=== PATIENT | male | born 1950 | race Caucasian/White ===

== ENCOUNTER → 2016-11-16 | Outpatient (CLI) | payer OTHER ==
[~2016-11-16] MED LIST: DEPO METHYLPREDNISOLONE 80 MG/ML SDV ONE; IOPAMIDOL (ISOVUE 370) 100 ML BTL IV ONE; LIDOCAINE 1% 30 ML SDV ONE; NA BICARBONATE 50 MEQ/50 ML VIAL ONE; ROPIVACAINE HCL 150 MG/30 ML INJ ONE
== END ==
LOC: FIMAGING 13:04
PROVIDERS: ATTEND Orthopaedic Surgery
PROC: 3E0U33Z Introduction of Anti-inflammatory into Joints, Percutaneous Approach (ICD-10-PCS; principal; 2016-11-16)
PROC: 3E0U3BZ Introduction of Anesthetic Agent into Joints, Percutaneous Approach (ICD-10-PCS; principal; 2016-11-16)
DX: M16.11 Unilateral primary osteoarthritis, right hip (principal)
CPT/HCPCS: J1040; J2795; Q9967

== ENCOUNTER 2017-01-18 05:51 | Inpatient (IN) | payer OTHER ==
--- NOTE | 2016-12-24 15:21 | GHP ---
[f rep st] PREOP HISTORY AND PHYSICAL DATE OF ADMISSION: 01/18/2017 He will be an a.m. admission for surgery on January 18, 2017. PROBLEM: Right hip arthritis. HISTORY OF PRESENT ILLNESS: The patient is a 66-year-old man admitted for a right total hip arthrop lasty. He has had progressive pain in the right hip over the last couple of years. It is limiting his activities. He is having daily pain and some night pain. He has also noticed that the hip is s tiff and tight. PAST MEDICAL HISTORY: He has a right total knee arthroplasty which was performed in [facility] 14 years ago. He also has known degenerative arthritis in his left knee. He has had a previou s left knee ACL reconstruction. He has been evaluated for abnormal cardiac rhythm. He has been evaluated by his knot cutter and adams s been cleared for surgery. No history of DVT, hepatitis, or sleep apnea. He has never had a previ ous MRSA staph infection. CURRENT MEDICATIONS: None. DRUG ALLERGIES: Questionable allergy to penicillin as a young adult. Metal allergies: None. Late x allergy: None. SOCIAL HISTORY: The patient does not smoke cigarettes. Occasionally drinks alcohol. 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 He is . FAMILY HISTORY: Positive for arthritis, high blood pressure, heart disease and diabetes. PHYSICAL EXAMINATION: Height 5 feet 11 inches. Weight 180 pounds. BMI 27.8. EYES: Conjunctivae and sclerae are clear. Pupils are round and reactive. MOUTH: Good oral hygiene. No loose teeth. CHEST: Clear. HEART: Regular rhythm. No murmurs. EXTREMITIES: Pertinent findings limited to h is right hip. He has full hip extension and about 105 degrees of flexion. External rotation 20 deg bimal. Internal rotation 10 degrees. Abduction 20 degrees. IMAGING: Films on July 30, 2016, show advanced degenerative arthritis of the right hip. He has cartilage space narrowing and osteophyte formation. His leg lengths are equal. IMPRESSION ON ADMISSION: 1. Right hip advanced degenerative arthritis. 2. Status post right total knee arthroplasty 14 years ago. 3. Left knee moderate degenerative arthritis. PLAN: He will undergo a right total hip arthroplasty. The surgery has been described to him, inclu ding the risks, complications, expectations, and recovery time. I have specifically discussed with him the risk of dislocation, leg length inequality, infection, and sciatic nerve injury. He likes t o mountain climb, rock climb and kayak. All his questions have been answered, and he consents to maddy faulkner. /[id number]/MODL
[2017-01-18] MEDS ORDERED: ceFAZolin 1 GM/5 ML SYR ONE (06:35)
[2017-01-18] MEDS ORDERED: LIDOCAINE 1% 2 ML INJ ONE (06:49)
--- NOTE | 2017-01-18 06:50 | PDANEPAE ---
ANE History of Present Illness right hip replacement ANE Past Medical History - Cardiovascular History Hx Hypertension: No Hx Arrhythmias: No Hx Chest Pain: No Hx Coronary Artery / Peripheral Vascular Disease: No Hx CHF / Valvular Disease: No Hx Palpitations: No - Pulmonary History Hx COPD: No Hx Asthma/Reactive Airway Disease: No Hx Recent Upper Respiratory Infection: No Hx Oxygen in Use at Home: No Hx Sleep Apnea: No Sleep Apnea Screening Result - Last Documented: Negative - Neurologic History Hx Cerebrovascular Accident: No Hx Seizures: No Hx Dementia: No - Endocrine History Hx Diabetes: No - Renal History Hx Renal Disorders: No - Liver History Hx Hepatic Disorders: No - Neurological & Psychiatric Hx Hx Neurological and Psychiatric Disorders: No - Cancer History Hx Cancer: No - Congenital Disorder History Hx Congenital Disorders: No - Chronic Pain History Chronic Pain: Yes (RIGHT HIP AND LEFT KNEE) - Surgical History Prior Surgeries: LEFT FOOT RECONSTRUCTION. RIGHT KNEE REPLACEMENT. LEFT KNEE ACL RECOSNTRUCTION. LEFT ARM TENDON SURGERY. INGUINAL REPAIR. TONSILLECTOMY ANE Review of Systems - Exercise capacity METS (RN): 4 METS ANE Patient History - Allergies Allergies/Adverse Reactions: Penicillins Allergy (Verified 12/24/16 14:24) - Home Medications Home medications: home medication list seen and reviewed Home Medications: Ascorbic Acid [Vitamin C 500 mg (*)] 1,000 mg PO DAILY 12/24/16 [Last Taken Unknown] Cholecalciferol Vit D3 [Vitamin D3 2000 units tab (OTC)] 4,000 units PO DAILY [Last Taken Unknown] [place]-3 Fatty Acids [Fish Oil 1000 mg (*)] 4,000 mg PO DAILY 12/24/16 [Last Taken Unknown] Ibuprofen [Motrin (*)] 200 mg PO DAILY PRN 12/29/16 [Last Taken Unknown] - NPO status NPO Since - Liquids (Date): 01/18/17 NPO Since - Liquids (Time): 04:15 NPO Since - Solids (Date): 01/17/17 NPO Since - Solids (Time): 23:55 - Anes Hx Anes Hx: no prior problems - Smoking Hx Smoking Status: Never smoked ANE Labs/Vital Signs - Vital Signs Height: 175.26 cm Weight: 82.554 kg ANE Physical Exam - Airway Neck exam: FROM Mallampati Score: Class 1 Mouth exam: normal dental/mouth exam - Pulmonary Pulmonary: no respiratory distress - Cardiovascular Cardiovascular: regular rate and rhythym - ASA Status ASA Status: II ANE Anesthesia Plan Anesthesia Plan: spinal
[2017-01-18] MEDS ORDERED: MIDAZOLAM 2 MG/2 ML VIAL IVP ONE (06:51)
[2017-01-18] MEDS ORDERED: MIDAZOLAM 2 MG/2 ML VIAL ONE (06:54)
[2017-01-18] MEDS ORDERED: PROPOFOL 200 MG/20 ML VIAL ONE ×3 (06:58)
--- NOTE | 2017-01-18 07:04 | PDHPUP ---
History & Physical Update H&P update statement: This history and physical update is based on an assessment of the patient which was completed after admission or registration (within 24 hours), but prior to the surgery/procedure. H&P update: H&P reviewed & patient examined, no change in patient's condition since H&P completed
[2017-01-18] MEDS ORDERED: ceFAZolin 2 GM/DEXTROSE 100 ML IV ONE (07:09)
[2017-01-18] MEDS ORDERED: ACETAMINOPHEN 325 MG TAB PO ONE ×2 (07:09→07:30)
[2017-01-18] MEDS ORDERED: POVIDONE-IODINE 20 ML in SODIUM CL IRRIG SOLUTION 500 ML IRR ONE ×2 (07:09→07:30)
[2017-01-18] MEDS ORDERED: DEXAMETHASONE 4 MG/ML VIAL IVP ONE ×2 (07:09→07:30)
[2017-01-18] MEDS ORDERED: ROPIVACAINE 0.2% 80 MG, EPINEPHrine 0.2 MG, KETOROLAC TROMETHAMINE 30 MG in BAG 0 ML IU ONE (07:09)
[2017-01-18] MEDS ORDERED: TRANEXAMIC ACID 1 MG in NS 100 ML IV ONE (07:09)
[2017-01-18] MEDS ORDERED: FAMOTIDINE 20 MG TAB PO ONE ×2 (07:09→07:30)
[2017-01-18] MEDS ORDERED: CEFAZOLIN 2 GM/DEXTROSE/100 ML BAG IV ONE (07:16)
[2017-01-18] MEDS ORDERED: TRANEXAMIC ACID IV ONE (07:30)
[2017-01-18] MEDS ORDERED: CHLORHEXIDINE GLUC HIBICLENS 118 ML BTL TP ONE (07:30)
[2017-01-18] MEDS ORDERED: NS IV ONE (07:30)
[2017-01-18] MEDS ORDERED: ROPI/epiNEPH/KETOROLAC JOINT COCKTAIL IU ONE (07:30)
[2017-01-18] MEDS ORDERED: LACTULOSE 20 GM/30 ML UDCUP PO PRN (09:07)
[2017-01-18] MEDS ORDERED: BISACODYL 10 MG SUPP PR PRN (09:07)
[2017-01-18] MEDS ORDERED: PROMETHAZINE HCL 25 MG/ML INJ IVP PRN (09:07)
[2017-01-18] MEDS ORDERED: POLYETHYLENE GLYCOL 3350 17 GM PKT PO PRN (09:07)
[2017-01-18] MEDS ORDERED: DIPHENOXYLATE/ATROPINE LOMOTIL 1 TAB PO PRN (09:07)
[2017-01-18] MEDS ORDERED: traMADol 50 MG TAB PO PRN (09:07)
[2017-01-18] MEDS ORDERED: ONDANSETRON DISINTEGRATING 4 MG TAB PO PRN (09:07)
[2017-01-18] MEDS ORDERED: KETOROLAC 30 MG/1 ML SDV IVP PRN (09:07)
[2017-01-18] MEDS ORDERED: ONDANSETRON 4 MG/2 ML VIAL IVP PRN ×2 (09:07→09:09)
[2017-01-18] MEDS ORDERED: MAGNESIUM HYDROXIDE 30 ML UDCUP PO PRN (09:07)
[2017-01-18] MEDS ORDERED: METOCLOPRAMIDE 10 MG/2 ML VIAL IVP PRN (09:07)
[2017-01-18] MEDS ORDERED: oxyCODONE IR 5 MG TAB PO PRN (09:07)
[2017-01-18] MEDS ORDERED: PHARMACY PAIN CONSULT 1 EA MISC PRN (09:07)
[2017-01-18] MEDS ORDERED: TEMAZEPAM 15 MG CAP PO PRN (09:07)
[2017-01-18] MEDS ORDERED: NS 500 ML IV PRN (09:07)
[2017-01-18] MEDS ORDERED: CYCLOBENZAPRINE 10 MG TAB PO PRN (09:07)
[2017-01-18] MEDS ORDERED: PROMETHAZINE HCL 25 MG SUPPR PR PRN (09:07)
[2017-01-18] MEDS ORDERED: diphenhydrAMINE 25 MG CAP PO PRN (09:07)
--- NOTE | 2017-01-18 09:07 | POSTOPPROG ---
Post Op Note Date of Operation: 01/18/17 Surgeon: Jasen Mckeon Diabetes Trainer: Jia Anesthesiologist: Earl Anesthesia: IV Sedation, Spinal Post-op Diagnosis: right hip arthritis Procedure: R CARTER Inf/Abcess present in the surg proc area at time of surgery?: No EBL: 50-100
[2017-01-18] MEDS ORDERED: NALOXONE HCL 0.4 MG/ML INJ IVP PRN (09:09)
[2017-01-18] MEDS ORDERED: OXYCODONE/APAP 5/325 TAB PO PRN (09:09)
[2017-01-18] MEDS ORDERED: LR 500 ML IV PRN (09:09)
[2017-01-18] MEDS ORDERED: ACETAMINOPHEN 500 MG TAB PO PRN (09:09)
[2017-01-18] MEDS ORDERED: HYDROmorphONE/DILAUDID 1 MG/ML SYR IVP PRN (09:09)
--- NOTE | 2017-01-18 09:09 | POSTANESTH ---
Post Anesthetic Evaluation Cardiovascular Status: Normal, Stable Respiratory Status: Normal, Stable Level of Consciousness/Mental Status: Can Participate in Eval Pain Control: Adequate, Prn Tx Ordered Nausea/Vomiting Control: Adequate, Prn Tx Ordered Complications Possibly Related to Anesthesia: None Noted
[2017-01-18] MEDS ORDERED: LR 1,000 ML IV SCH (09:30)
--- NOTE | 2017-01-18 09:57 | POSTOPPROG ---
Post Op Note Date of Operation: 01/18/17 Surgeon: Jasen Devine [place] Inf/Abcess present in the surg proc area at time of surgery?: No Drains: Other (duplicate)
--- NOTE | 2017-01-18 10:41 | GOP ---
[f rep st] OPERATIVE REPORT DATE OF OPERATION: 01/18/2017 SURGEON: Jasen Mckeon MD AUTOMATION AND CONTROLS INSTRUCTOR: Fabiano Neville, ENGINEER GAS PUMPING STATION and Chino Lopez, PAC. ANESTHESIA: A combination of Marcaine, spinal, and IV sedation. ANESTHESIOLOGIST: Syed Elliott MD. PREOPERATIVE DIAGNOSIS: Right hip severe degenerative arthritis. POSTOPERATIVE DIAGNOSIS: Right hip severe degenerative arthritis. PROCEDURE PERFORMED: Right total hip arthroplasty, Oxinium femoral head on highly cross-linked poly ethylene cup liner. FINDINGS: DESCRIPTION OF PROCEDURE: The patient was given 2 g of IV Ancef preoperatively within 60 minutes of surgery. He also received IV tranexamic acid at a dose of 20 mg/kg. He was placed on the operatin g room table and given spinal anesthesia with Marcaine by Dr. Elliott. He was then placed supine a nd given IV sedation. A Weldon catheter was not used. He wore a BEKAH stocking and SCD on the nonoper ative leg. He was rolled to the left lateral decubitus position. The position was secured with the pegboard table attachment. An axillary roll was used, and all pressure points were carefully padde d. I was careful to lock his pelvis in a rigid vertical position. His perineum was isolated with p lastic adhesive drapes. The right hip and right lower extremity were prepped with ChloraPrep. They were draped free using sterile sheets, stockinette, and Ioban plastic adhesive drapes. The [employer] time-out was performed to verify the correct surgical side and site an d the correct patient identity. The [place] time-out was also performed. I made a 5-inch straight oblique posterolateral hip skin incision. Subcutaneous tissues were sharpl y divided, and hemostasis was obtained using electrocautery. He was a thin man and had a thin layer of subcutaneous fat. The fascia erik was identified and split along the axis of its fibers at its very proximal end. I then curved posteriorly and proximally, and split the fascia of the gluteus ma ximus and bluntly split the muscle fibers in line with their orientation. The [place]arnley self-retaini ng retractor was inserted. His sciatic nerve was located, partially exposed, and protected througho ut the procedure. The external rotators and the posterior hip capsule were divided as separate laye rs at the base of the femoral neck, tagged, and reflected posteriorly. A smooth 1/8-inch Steinmann pin was inserted vertically into the ilium, superior to the acetabulum. A 1/8-inch drill bit was in serted vertically into the greater trochanter and parallel to the first pin. The distance between t he 2 was measured for leg length reference. His femoral head was dislocated posteriorly. Severe de generative changes were present on the femoral head. His femoral neck was osteotomized at the appro priate level and inclination. I was careful to preserve all the posterior capsule and most of the anterior capsule. The remnant o f his damaged labrum was excised. I prepared the femur first. This allowed me to optometric assistant the amount of natural femoral neck anteversion . This, in turn, allowed me to later determine the correct amount of cup anteversion. He had appro ximately 10 degrees of natural femoral neck anteversion. The canal was opened laterally with a box chisel. I reamed and broached sequentially up to size 13. I used a size 13 broach as a trial stem. I was careful to lateralize adequately. Appropriate retractors were inserted to expose the acetabulum. The acetabulum was reamed sequential ly up to 55 mm. I selected a 56 mm Salazar and Nephew R3 solid-backed hemispherical shell. This was tapped securely into place in the proper degree of inclination and anteversion. I used the transver se acetabular ligament and other acetabular bony landmarks to help me properly orient the cup. Fixa tion was very tight, and I did not think supplemental screw fixation was necessary. I inserted a sc rew-in metal dome hole plug. I performed a series of trial reductions to determine the length and stability. I concluded that th e size 13 stem with a 0 neck length with a high-offset neck with a 36 mm head and a flush liner gave me the proper combination of appropriate length and good anterior and posterior stability. The hig h-offset stem more accurately matched his preoperative anatomy. The flush or 0 degrees Salazar and Nephew R3 highly cross-linked polyethylene liner was inserted and t apped securely into place. I chose a Salazar and Nephew Synergy stem in a size 13 with high offset. This was inserted press-fit and was very tight. I did 1 final trial reduction and confirmed that th e 0 neck length with a 36 mm head was the proper combination. I selected a Salazar and Nephew Oxinium head with an outside diameter of 36 mm and a 0 neck length. This was tapped securely onto the [facility] trunnion. The acetabulum was irrigated and cleaned and the hip was reduced 1 final time. He had excellent anterior and posterior stability and appropriate length. 40 mL of the joint anesthetic cocktail was injected into the capsule, the deep musculature, and the subcutaneous tissues around the skin edges. The joint was thoroughly irrigated 1 final time with a dilute Betadine solution. His sciatic nerve was reinspected and looked unharmed. The external rota tors and the posterior hip capsule were repaired in separate layers with #2 FiberWire sutures throug h drill holes over the drill holes in the greater trochanter. This created a strong posterior capsu lar and external rotator repair. His fascia erik was closed first with a couple of interrupted Fibe rWire [id number] sutures followed by a running #2 barbed Ethicon Stratafix PDO suture. Subcuta neous tissues were closed with a running 0 barbed Ethicon Stratafix Monoderm suture. The skin was c losed with a running 3-0 barbed Ethicon Stratafix Monoderm subcuticular suture. The skin edges were reapproximated and sealed with Dermabond glue. The wound was covered with a strip of Telfa, and ev erything was held in place with a piece of clear plastic Tegaderm. A long-leg BEKAH stocking and SCD were applied to his right lower extremity. He wore a stocking and S CD on the opposite leg during the procedure. An abduction pillow was placed between his knees. He was awakened from anesthesia and rolled to the supine position on his [facility]. He was taken to PACU in satisfactory condition. There were no recognized intraoperative complications. The est imated blood loss was about 300 mL. I used a Salazar and Nephew R3 hemispherical solid-backed acetabular shell with an outside diameter of 56 mm. The liner was a Salazar and Nephew R3 flush highly cross-linked liner with an inside diameter of 36 mm. The femoral component was a press-fit Salazar and Nephew high-offset Synergy stem in size 13. The femoral head was a Salazar and Nephew Oxinium head with a 0 mm neck length and a 36 mm outsid e diameter. Fabiano Neville and Tyrese Lopez acted as surgical assistants. Their assistance was a medical neces sity. /[id number]/MODL
[2017-01-18] MEDS: ACETAMINOPHEN 325 MG TAB PO SCH ×3 (13:05→23:10)
[2017-01-18] MEDS: TRANEXAMIC ACID 650 MG TAB PO SCH ×2 (14:32→23:10)
[2017-01-18] MEDS: ceFAZolin 2 GM/DEXTROSE 100 ML IV SCH ×2 (14:32→20:44)
[2017-01-18] MEDS: FAMOTIDINE 20 MG TAB PO SCH (20:45)
[2017-01-18] MEDS: ASPIRIN 325 MG TAB PO SCH (20:45)
[2017-01-18] MEDS: SENNOSIDES/DOCUSATE SODIUM TAB PO SCH (20:45)
[2017-01-19 04:48] LABS: HEMATOCRIT 37.4 % (40.0-51.0); HEMOGLOBIN 12.9 g/dL (13.7-17.5)
[2017-01-19] MEDS: ACETAMINOPHEN 325 MG TAB PO SCH (06:05)
[2017-01-19] MEDS: TRANEXAMIC ACID 650 MG TAB PO SCH (06:05)
[2017-01-19 07:58] VITALS: BP 135/89; PULSE 96; RESP 14; TEMP 98.7; O2SAT 78
[2017-01-19] MEDS: ASPIRIN 325 MG TAB PO SCH (08:14)
[2017-01-19] MEDS: SENNOSIDES/DOCUSATE SODIUM TAB PO SCH (08:16)
[2017-01-19] MEDS ORDERED: FERROUS SULFATE 140 MG TAB.ER PO SCH (09:00)
[2017-01-19] MEDS: FAMOTIDINE 20 MG TAB PO SCH (09:25)
--- NOTE | 2017-01-19 09:56 | SOAPPROG ---
SOAP Progress Note Assessment/Plan: Assessment: Afebrile. Awake and alert. Almost no pain. H/H is good. Sciatic nerve intact. Films look good. Plan: DC today. 01/19/17 09:52 Objective: Vital Signs Temp Pulse Resp BP Pulse Ox 37.1 C 96 14 135/89 H 78 L 01/19/17 07:57 01/19/17 07:57 01/19/17 07:57 01/19/17 07:57 01/19/17 07:57 Laboratory Results 01/19/17 04:32 01/18/17 01/19/17 01/20/17 05:59 05:59 05:59 Intake Total 2125 Output Total 1300 Balance 825 ICD10 Worksheet Patient Problems: Problems Problem Status Onset Osteoarthritis of right hip Acute - ICD10 Problem Qualifiers (1) Osteoarthritis of right hip Qualifiers: Osteoarthritis type: primary Qualified Code(s): M16.11 - Unilateral primary osteoarthritis, right hip
--- NOTE | 2017-01-19 20:04 | GDS ---
[f rep st] DISCHARGE SUMMARY ADMISSION DIAGNOSIS: Right hip advanced degenerative arthritis. DISCHARGE DIAGNOSIS: Right hip advanced degenerative arthritis. OPERATION PERFORMED: On 01/18/2017, right total hip arthroplasty. POSTOPERATIVE COMPLICATIONS: None. CONDITION ON DISCHARGE: Improved. DESCRIPTION OF HOSPITAL COURSE: The patient was admitted to the hospital on the morning of surgery. His admission CBC was normal. The same day, under a combination of Marcaine, spinal, and IV sedat ion, he underwent a right total hip arthroplasty. Postoperatively, he had to be catheterized 1 time . He was able to void spontaneously after that. He was treated with multimodal DVT prophylaxis, in cluding aspirin. On the first postoperative day, his hemoglobin and hematocrit were 12.9 and 37.4. He did not requir e any transfused blood. He was seen by Physical Therapy and made excellent progress with ambulation and stairs. DISPOSITION: The patient discharged to his home. DISCHARGE INSTRUCTIONS: He may weight bear as tolerated on the right. Continue aspirin 325 mg p.o. daily for 21 days. Use an abduction pillow in bed for 3 weeks. He will go to outpatient physical therapy. I will see him back in the office in 3 weeks. If there are any problems, he is to call me at the office. /[id number]/MODL
== END 2017-01-19 10:49 | disposition home or self-care (01) | DRG 470 ==
LOC: F3N 05:51
PROVIDERS: ADMIT Orthopaedic Surgery; ATTEND Orthopaedic Surgery
PROC: 0SR902Z Replacement of Right Hip Joint with Metal on Polyethylene Synthetic Substitute, Open Approach (ICD-10-PCS; principal; 2017-01-18 07:15)
DX: M16.11 Unilateral primary osteoarthritis, right hip (principal); M17.12 Unilateral primary osteoarthritis, left knee; Z96.651 Presence of right artificial knee joint
CPT/HCPCS: 97116-GP; 97161-GP; 97165-GO; 97530-GP; J0171; J0690; J1100; J1885; J2250; J2704; J2795